=== PATIENT | male | born 1935 | race Caucasian/White ===

== ENCOUNTER 2017-07-23 15:04 | Emergency (ER) | payer OTHER ==
[~2017-07-23 15:04] MED LIST: ASPIRIN BUFFER325 MG PO; CENTRUM SILVER1 EAC1 PO; CENTRUM SILVER1 EACH PO; CIPROFLOXACIN500 M1 PO; COUMADIN 5 MG TA5 M1 PO; COUMADIN PO; COZAAR100 MG PO; DIALYVITE 800-0.8 MG PO; ETODOLAC 400 M400 MG PO; FISH OIL 1,0001 EAC5 PO; FISH OIL SOFTG1 EACH PO; FISHOIL; FOLIC ACID 40400 MC1 PO; ICAPS TABLET1 EACH PO; LOVENOX SQ; PLAVIX 75 MG TA75 MG PO; QUESTRAN PACKET4 GM PO; ZANTAC 150MG T150 M1 PO
== END 2017-07-23 17:57 ==
LOC: M.ERS 15:04
DX: I46.9 Cardiac arrest, cause unspecified (principal); I10 Essential (primary) hypertension; Z95.5 Presence of coronary angioplasty implant and graft